=== PATIENT | male | born 2000 | race Hispanic/Latino ===

== ENCOUNTER 2022-12-02 16:38 | Emergency (ER) | payer SELFPAY ==
[2022-12-02] MEDS ORDERED: CEPHALEXIN500 MG PO (16:59)
[2022-12-02 17:30] VITALS: BP 126/86
== END 2022-12-02 17:39 | disposition home or self-care (01) | DRG 914 ==
LOC: ED 16:38
DX: S81.841A Puncture wound with foreign body, right lower leg, initial encounter (principal); W26.8XXA Contact with other sharp object(s), not elsewhere classified, initial encounter; Y93.89 Activity, other specified